=== PATIENT | female | born 1990 | race Caucasian/White ===

== ENCOUNTER 2018-10-26 08:48 | Inpatient (IN) | payer MEDICAID, OTHER ==
[2018-10-26] MEDS ORDERED: STADOL IV PRN (10:04)
[2018-10-26] MEDS ORDERED: XYLOCAINE 2% INFILTRATI ONE (10:04)
[2018-10-26] MEDS ORDERED: BRETHINE SUB-Q PRN (10:04)
[2018-10-26] MEDS ORDERED: BRETHINE IVP PRN (10:04)
[2018-10-26] MEDS ORDERED: MINERAL OIL PO PRN (10:04)
--- NOTE | 2018-10-26 10:18 | History and Physical Report ---
History of Present Illness Date of examination: 10/26/18 Date of admission: 10/26/18 Chief complaint: Contractions History of present illness: 28yo G 1 P 0 0 0 0 @ 41 weeks 3 days here with c/o contractions. She reports +FMs but denies VB or LOF. She is a [facility] patient who initiated care at 11 weeks gestation. Her course has been unremarkable. Labs: Opos, Antibody Screen neg, RI, VDRL NR, HBsAg neg, HIV neg, MSAFP neg, Diabetes Screen 164, 3-hr GTT normal, GC/CT neg, GBS neg Past History Past Medical History: no pertinent history Past Surgical History: no surgical history Family/Genetic History: diabetes (mother, grandmother) Social history: , lives with family, full code. denies: smoking, alcohol abuse, prescription drug abuse, IV drug use - Obstetrical History Expected Date of Delivery: 10/16/18 Actual Gestation: 41 Week(s) 3 Day(s) : 1 Para: 0 Hx # Term Pregnancies: 0 Number of Pregnancies: 0 Spontaneous Abortions: 0 Induced : 0 Number of Living Children: 0 Medications and Allergies Allergies Allergy/AdvReac Type Severity Reaction Status Date / Time No Known Allergies Allergy Verified 10/26/18 10:00 Review of Systems All systems: negative - Vital Signs Vital signs: Vital Signs Pulse BP 64 124/79 10/26/18 09:09 10/26/18 09:09 Temp Pulse Resp BP Pulse Ox 98.3 F 64 124/79 10/26/18 09:39 10/26/18 09:09 10/26/18 09:09 - Physical Exam Genitourinary (Female): Positive: normal external genitalia, normal perenium. Negative: perineal/vulvar lesions Vulva: both: normal Uterus: Positive: normal size, normal contour Anus/Rectum: Positive: normal perianal skin Extremities: Positive: normal - Obstetrical FHR: auscultation normal, category 1 FHR comments: baseline 140, moderate variability, 15x15 accels, no decels Uterine Contraction Monitor Mode: External Cervical Dilatation: 2 Cervical Effacement Percentage: 70 station: -3 Uterine Contraction Frequency (min): 3-7 Uterine Contraction Pattern: Regular Results All other labs normal. Assessment and Plan - Patient Problems (1) 41 weeks gestation of Current Visit: Yes Status: Acute (2) Post-dates Current Visit: Yes Status: Acute Qualifiers: Post-term type: 40-42 weeks gestation Qualified Code(s): O48.0 - Post-term (3) Encounter for induction of labor Current Visit: Yes Status: Acute Plan to address problem: Admit to L&D with routine labor orders Start low-dose pitocin for cervical ripening Anticipate vaginal delivery
[2018-10-26] MEDS ORDERED: PITOCin/NS 20 UNIT/1000ML DRIP 20 UNITS/1,000 ML BAG IV SCH (11:00)
[2018-10-26 11:04] LABS: Hematocrit 35.7 % (30.3-42.9); Hemoglobin 12.4 gm/dl (10.1-14.3); Mean Corpuscular HGB Conc 35 % (30-34); Mean Corpuscular Volume 92 fl (79-97); Platelet Count 134 K/mm3 (140-440); Red Blood Count 3.87 M/mm3 (3.65-5.03); Red Cell Distribution Width 14.5 % (13.2-15.2)
[2018-10-26] MEDS: LACTATED RINGERS 1,000 ML IV SCH (16:54)
--- NOTE | 2018-10-26 19:36 | Event Note ---
Assumed care of patient at 5:30 PM. Patient is here for IOL. Cervix 3/70/-4. No lesions seen on careful inspection of genitalia under bright light. No leaking of fluid or vaginal bleeding seen. Category 1 heart rate tracing. Discussed with patient risks and benefits of Pitocin induction of labor. Patient consented to Pitocin induction of labor.
[2018-10-26] MEDS: PITOCin/NS 30 UNIT/500ML 30 UNITS/500 ML BAG IV SCH (20:11)
[2018-10-27] MEDS: LACTATED RINGERS 1,000 ML IV SCH ×2 (06:50→14:14)
--- NOTE | 2018-10-27 07:45 | Progress Note ---
Assessment and Plan A: at 41 weeks, 4 days gestation. Induction of labor. GBS negative. P: Continuous EFM. Pitocin induction of labor. Subjective - Subjective Date of service: 10/27/18 Principal diagnosis: at 41 weeks, 4 days gestation; IOL Interval history: IOL was started last night with low dose Pitocin. Patient reports she is feeling mild contractions. Patient denies vaginal bleeding or LOF. Patient reports act abbie movement. Patient reports: movement normal, contractions, no new complaints, no loss of fluid, no vaginal bleeding Objective - Vital Signs Vital Signs: Vital Signs - 12hr 10/27/18 10/27/18 10/27/18 00:49 01:48 02:48 Pulse Rate 68 68 66 Blood Pressure 106/59 136/65 113/69 10/27/18 10/27/18 10/27/18 03:49 04:48 : Pulse Rate 64 64 69 Blood Pressure 150/73 141/72 131/83 - Exam Abdomen: Present: normal appearance, soft. Absent: distention, tenderness, guarding, rigidity Uterus: Present: normal, fundal height above umbilicus. Absent: tenderness FHR: category 1 Uterine Contraction Monitor Mode: External Cervical Dilatation: 3.5 Cervical Effacement Percentage: 70 station: -2 Uterine Contraction Pattern: Regular Uterine Contraction Intensity: Mild Extremities: normal - Labs Labs: Abnormal Labs 10/26/18 10:34 MCHC 35 H Plt Count 134 L Laboratory Results - last 24 hr 10/26/18 10/26/18 10/26/18 10:34 10:34 10:34 WBC 7.2 RBC 3.87 Hgb 12.4 Hct 35.7 MCV 92 MCH 32 MCHC 35 H RDW 14.5 Plt Count 134 L RPR Nonreactive Blood Type O POSITIVE Antibody Screen Negative
[2018-10-27] MEDS: SUBLIMAZE IV PRN ×3 (08:48→22:27)
--- NOTE | 2018-10-27 15:47 | Event Note ---
Date: 10/27/18 SVE -3.
[2018-10-27] MEDS: PITOCin/NS 30 UNIT/500ML 30 UNITS/500 ML BAG IV SCH (19:36)
--- NOTE | 2018-10-27 21:24 | Event Note ---
Date: 10/27/18 Nurse reports spontaneously ruptured membranes, clear fluid. Pitocin augmentation of labor. SVE /-3.
[2018-10-28] MEDS ORDERED: MARCAINE 0.25% INFILTRATI ONE (00:01)
[2018-10-28] MEDS ORDERED: NARCAN 2 MG/2 ML IV PRN (00:25)
--- NOTE | 2018-10-28 00:25 | Anesthesia Consultation ---
Anesthesia Consult and Med Hx Date of service: 10/28/18 - Airway Anesthetic Teeth Evaluation: Good ROM Head & Neck: Adequate Mental/Hyoid Distance: Adequate Mallampati Class: Class II Intubation Access Assessment: Good - Pulmonary Exam CTA: Yes - Cardiac Exam Cardiac Exam: RRR - Pre-Operative Health Status ASA Pre-Surgery Classification: ASA2 Proposed Anesthetic Plan: Epidural - Pulmonary Hx Asthma: No - Cardiovascular System Hx Hypertension: No - Central Nervous System Hx Seizures: No Hx Psychiatric Problems: No - Endocrine Hx Renal Disease: No Hx Hypothyroidism: No Hx Hyperthyroidism: No - Hematic Hx Anemia: No Hx Sickle Cell Disease: No - Other Systems Hx Alcohol Use: No
[2018-10-28] MEDS ORDERED: fentaNYL-BUPIV 2 MCG/ML-0.125% 200 MCG/100 ML BAG EPIDURAL SCH (01:00)
[2018-10-28] MEDS ORDERED: LACTATED RINGERS 1,000 ML IV SCH (01:00)
--- NOTE | 2018-10-28 03:05 | Event Note ---
Date: 10/28/18 SVE -.
[2018-10-28] MEDS ORDERED: TYLENOL PO ONE (05:29)
--- NOTE | 2018-10-28 05:40 | Event Note ---
Date: 10/28/18 SVE 9.5/95/0. Category 1 heart rate tracing. Patient comfortable with epidural but feels some pelvic pressure at this time.
[2018-10-28] MEDS ORDERED: LANSINOH TP PRN (06:43)
[2018-10-28] MEDS ORDERED: BENADRYL PO PRN (06:43)
[2018-10-28] MEDS ORDERED: TUCKS PAD TP PRN (06:43)
[2018-10-28] MEDS ORDERED: NORCO 5/325 PO PRN (06:43)
--- NOTE | 2018-10-28 06:48 | Procedure Note ---
OB Delivery Note - Delivery Date of Delivery: 10/28/18 Surgeon: ELIEZER DAVISON Estimated blood loss: 200cc - Vaginal Delivery presentation: vertex Delivery position: OA Intrapartum events: none Delivery induction: oxytocin Delivery monitor: external FHT, external uterine Route of delivery: Delivery placenta: spontaneous Delivery cord: 3 umbilical vessels Episiotomy: none Delivery laceration: other (small skid adalberto; pt. declines repair) Anesthesia: epidural Delivery comments: Spontaneous vaginal delivery at 06:13 of liveborn female weighing 8 lb. 8 oz. over intact perineum with apgars of 8/9. Epidural anesthesia. Short cord. Baby placed skin to skin with mom immediately after . Baby dried and bulb suctioned. Spontaneous cry and respirations. 3 vessel cord double clamped and cut after cessation of pulsation. Spontaneous delivery of intact placenta and membranes at 06:30. Pitocin to IV fluids after delivery of placenta. Fundus firm and midline. EBL 200 cc. Vaginal sweep negative. No lacerations noted. Small skid adalberto noted; pt. declined repair. Sponge count correct. Mother and baby stable in birthing room.
[2018-10-28] MEDS ORDERED: SODIUM CHLORIDE FLUSH SYRINGE 10 ML IV NR (07:00)
[2018-10-28] MEDS: IBUPROFEN PO SCH ×3 (07:42→21:22)
--- NOTE | 2018-10-28 09:14 | Post Anesthesia Evaluation ---
- Post Anesthesia Evaluation Patient Participated: Yes Airway Patent: Yes Stable Respiratory Function: Yes Nausea/Vomiting: No Temp > 96.8F: Yes Pain Manageable: Yes Adequeate Hydration: Yes Anesthesia Complications: No Block Receding Appropriately: Yes Patient on Ventilator: No
[2018-10-28] MEDS ORDERED: DULCOLAX PR PRN (10:00)
[2018-10-28 19:25] LABS: Hematocrit 28.5 % (30.3-42.9); Hemoglobin 9.8 gm/dl (10.1-14.3)
[2018-10-28] MEDS ORDERED: MILK OF MAGNESIA PO PRN (22:00)
[2018-10-29] MEDS: IBUPROFEN PO SCH (02:46)
[2018-10-29] MEDS ORDERED: FEOSOL PO SCH (10:00)
--- NOTE | 2018-10-29 11:00 | Progress Note ---
Assessment and Plan - Patient Problems (1) Status post normal vaginal delivery Current Visit: Yes Status: Acute Plan to address problem: PPD 2 - stable Continue routine orders Follow-up at [facility] as needed or in 6 weeks for exam (2) Anemia due to blood loss, acute Current Visit: Yes Status: Acute Plan to address problem: Asymptomatic Continue iron therapy Subjective - Subjective Date of service: 10/29/18 Principal diagnosis: PPD #2; s/p Interval history: see H&P, Event Notes and OB Progress Note Patient reports: appetite normal, voiding normally, pain well controlled, ambulating normally, no dizzy ambulation : doing well, nursing well Objective - Vital Signs Latest vital signs: Vital Signs Temp Pulse Resp BP BP Pulse Ox 10/29/18 08:44 98.2 F 71 18 104/64 97 10/29/18 03:46 18 10/29/18 02:46 18 10/29/18 00:00 98.4 F 76 18 107/55 10/28/18 22:22 18 10/28/18 21:22 18 10/28/18 20:00 98.6 F 77 18 107/59 10/28/18 16:24 98.8 F 86 16 103/53 96 10/28/18 12:59 98.4 F 87 16 113/51 97 Intake and Output 10/28/18 10/29/18 10/29/18 23:59 07:59 15:59 Intake Total 300 200 120 Output Total 500 Balance -200 200 120 Intake: Oral 200 120 Intake, Free Water 300 Output: Urine 500 Void 500 Other: Total, Intake Amount 200 120 Total, Output Amount 200 # Voids Void 1 - Exam Cardiovascular: Present: Regular rate Lungs: Present: Clear to auscultation Abdomen: Present: normal appearance, soft Vulva: both: normal Uterus: Present: normal, firm, fundal height below umbilicus Extremities: Present: normal Comments: scant lochia - Labs Labs: Abnormal lab results 10/28/18 Range/Units 18:39 Hgb 9.8 L (10.1-14.3) gm/dl Hct 28.5 L D (30.3-42.9) %
--- NOTE | 2018-10-29 11:03 | Discharge Summary ---
Providers - Providers Date of Admission: 10/26/18 10:04 Date of discharge: 10/29/18 Attending physician: ELIZA DU MD Primary care physician: ELIZA DU MD Hospitalization Reason for admission: induction of labor, IUP at term Delivery: Episiotomy: none Laceration: none Other procedures: none Discharge diagnosis: IUP at term delivered [place] baby: female Hospital course: Uncomplicated Condition at discharge: Stable Disposition: DC-[id number] TO HOME OR SELFCARE - Discharge Diagnoses (1) Status post normal vaginal delivery Status: Acute (2) Anemia due to blood loss, acute Status: Acute Comment: Asymptomatic Continue iron therapy Plan - Discharge Medications Prescriptions: Ferrous Sulfate [Feosol 325 MG tab] 325 mg PO BID #60 tablet - Provider Discharge Summary Activity: routine, no sex for 6 weeks, no heavy lifting 4 weeks, no strenuous exercise Diet: routine Instructions: routine Additional instructions: [] Smoking cessation referral if applicable(refer to patient education folder for contact #) [] Refer to [facility] Booklet Call your doctor immediately for: * Fever > 100.5 * Heavy vaginal bleeding ( >1 pad per hour) * Severe persistent headache * Shortness of breath * Reddened, hot, painful area to leg or breast * Drainage or odor from incision. * Keep incision clean and dry at all times and follow doctor's instructions regarding bathing/showering - Follow up plan Follow up: ELIZA DU MD [Primary Care Provider] - 6 Weeks (Follow-up at [facility] as needed or in 6 weeks for exam)
[2018-10-29 17:44] VITALS: BP 114/65
== END 2018-10-29 17:25 | disposition home or self-care (01) | DRG 806 ==
LOC: TRG 08:48 → LD 10:04 → TRG 10:04 → OB 10-28 08:06
PROVIDERS: ADMIT Obstetrics & Gynecology; ATTEND Obstetrics & Gynecology
PROC: 3E033VJ Introduction of Other Hormone into Peripheral Vein, Percutaneous Approach (ICD-10-PCS; 2018-10-26)
PROC: 10E0XZZ Delivery of Products of Conception, External Approach (ICD-10-PCS; principal; 2018-10-28)
PROC: 3E0R3BZ Introduction of Anesthetic Agent into Spinal Canal, Percutaneous Approach (ICD-10-PCS; 2018-10-28)
PROC: 00HU33Z Insertion of Infusion Device into Spinal Canal, Percutaneous Approach (ICD-10-PCS; 2018-10-28)
DX: O48.0 Post-term pregnancy (principal); D62 Acute posthemorrhagic anemia; Z37.0 Single live birth; Z3A.41 41 weeks gestation of pregnancy; Z83.3 Family history of diabetes mellitus; O69.3XX0 Labor and delivery complicated by short cord, not applicable or unspecified; O90.81 Anemia of the puerperium
CPT/HCPCS: 36415; 85014; 85018; 85027; 86592; 86803; 86850; 86900; 86901; 88307; G0378; J2590; J3010; J7120